=== PATIENT | male | born 1985 | race Caucasian/White ===

== ENCOUNTER → 2018-08-27 | Outpatient (CLI) | payer BC ==
[2018-08-27 11:11] LABS: BASO # 0.1 10*3/uL (0.0-0.1); BASO % 0.6 % (0.0-1.0); EOS # 0.2 10*3/uL (0.0-0.4); EOS % 1.9 % (1.0-4.0); HEMATOCRIT 47.3 % (42.0-52.0); HEMOGLOBIN 16.7 g/dl (14.0-18.0); LYMPH # 2.1 10*3/uL (1.3-4.4); LYMPH % 26.4 % (27.0-41.0); MEAN CORPUSCULAR HGB 29.7 pg (27.0-31.0); MEAN CORPUSCULAR HGB CONC 35.3 g/dl (33.0-37.0); MEAN PLATELET VOLUME 10.2 fl (9.6-12.3); MONO # 0.5 10*3/uL (0.1-1.0); MONO % 6.3 % (3.0-9.0); NEUT # 5.2 10*3/uL (2.3-7.9); NEUT % 64.7 % (47.0-73.0); PLATELET COUNT AUTOMATED 257 10*3/uL (130-400); RED BLOOD COUNT 5.63 10*6/uL (4.50-5.90); RED CELL DISTRI WIDTH 11.7 % (0-14.5)
[2018-08-27 11:36] LABS: ALBUMIN 4.3 gm/dl (3.1-4.5); ALKALINE PHOSPHATASE 103 U/L (45-117); BUN 18 mg/dl (7-24); CHLORIDE 98 mmol/L (98-107); CHOLESTEROL 220 mg/dL (<200); CREATININE 1.03 mg/dL (0.70-1.30); FREE T4 1.18 ng/dl (0.76-1.46); HDL CHOLESTEROL 49 mg/dl (40-60); LDL CHOLESTEROL 150 mg/dL (9-159); POTASSIUM 4.8 mmol/L (3.5-5.1); SGOT/AST 21 IU/L (3-35); SGPT/ALT 44 U/L (12-78); SODIUM 133 mmol/L (136-145); TOTAL PROTEIN 7.5 gm/dL (6.4-8.2); TRIGLYCERIDES 106 mg/dl (<150); VLDL CHOLESTEROL 21 mg/dL (6-40)
== END | disposition home or self-care (01) ==
LOC: LAB 10:28
PROVIDERS: Internal Medicine
DX: E11.9 Type 2 diabetes mellitus without complications (principal)

== ENCOUNTER → 2024-05-29 | Outpatient (CLI) | payer BC ==
[~2024-05-29] MED LIST: LEVEMIR100 UNIT/1 SQ; NOVOLOG FL100 UNIT/1 SQ; PRILOSEC20 M1 PO
[2024-05-29 10:20] LABS: ALKALINE PHOSPHATASE 92 U/L (46-116); BUN 16 mg/dl (9-23); CHLORIDE 104 mmol/L (98-107); POTASSIUM 4.4 mmol/L (3.4-5.1); SGPT/ALT 37 U/L (5-49)
== END | disposition home or self-care (01) ==
LOC: LAB 09:44
PROVIDERS: ATTEND Internal Medicine
DX: E10.65 Type 1 diabetes mellitus with hyperglycemia (principal)

== ENCOUNTER 2024-09-30 17:00 | Inpatient (IN) | payer OTHER ==
[~2024-09-30] VITALS: Ht 165.1 cm; Wt 77.7 kg
[2024-09-30 17:23] VITALS: BP 109/66
[2024-09-30] MEDS ORDERED: SODIUM CHLORIDE 0.9% 1,000 ML IV ONE ×3 (17:30→18:30)
[2024-09-30 17:57] LABS: BASO % 0.3 % (0.0-1.0); HEMATOCRIT 36.5 % (42.0-52.0); MEAN CELL VOLUME 86.3 fl (80.0-94.0); MEAN CORPUSCULAR HGB 28.8 pg (27.0-31.0); MEAN CORPUSCULAR HGB CONC 33.4 g/dl (33.0-37.0); MEAN PLATELET VOLUME 9.6 fl (9.6-12.3); MONO # 0.8 10*3/uL (0.1-1.0); MONO % 11.1 % (3.0-9.0); NEUT # 5.4 10*3/uL (2.3-7.9); NEUT % 77.5 % (47.0-73.0); PLATELET COUNT AUTOMATED 161 10*3/uL (130-400); RED BLOOD COUNT 4.23 10*6/uL (4.50-5.90); RED CELL DISTRI WIDTH 11.9 % (0-14.5)
[2024-09-30 18:11] LABS: BUN 13 mg/dl (9-23); CHLORIDE 98 mmol/L (98-107); POTASSIUM 3.9 mmol/L (3.4-5.1)
[2024-09-30] MEDS ORDERED: ASPIRIN 325 MG TAB PO ONE (18:25)
[2024-09-30] MEDS ORDERED: Enoxaparin Sodium 80 MG/0.8 ML SYR SC ONE (18:25)
[2024-09-30] MEDS ORDERED: Ceftriaxone Sodium 1 GM/10 ML SYR IV ONE (18:30)
[2024-09-30] MEDS ORDERED: AZITHROMYCIN 250 ML IV ONE (18:35)
[2024-09-30] MEDS ORDERED: Metoprolol Tartrate 25 MG TAB PO ONE ×2 (20:35→22:00)
[2024-09-30 20:56] VITALS: BP 108/61
[2024-09-30] MEDS ORDERED: ACETAMINOPHEN 325 MG TAB PO PRN (21:15)
[2024-09-30] MEDS ORDERED: ACETAMINOPHEN 325 MG TAB PO ONE (21:15)
[2024-09-30 21:38] VITALS: BP 117/56
[2024-09-30 22:01] VITALS: BP 117/56
[2024-09-30 22:33] VITALS: BP 109/46
[2024-09-30 23:16] VITALS: BP 107/56
[2024-10-01] VITALS: BP 117/64
[2024-10-01 00:07] VITALS: BP 113/70
[2024-10-01 00:30] VITALS: BP 117/64
[2024-10-01] MEDS ORDERED: INSULIN LI100 UNIT/1 SQ (03:20)
[2024-10-01] MEDS ORDERED: VITAMIN D350 MC2 PO (03:20)
[2024-10-01] MEDS ORDERED: ATORVASTATIN CA40 M1 PO (03:20)
[2024-10-01] MEDS ORDERED: ACETAMINOPHEN 325 MG TAB PO PRN (03:30)
[2024-10-01] MEDS ORDERED: Enoxaparin Sodium 80 MG/0.8 ML SYR SC SCH (06:00)
[2024-10-01 06:48] LABS: BUN 12 mg/dl (9-23); CHLORIDE 104 mmol/L (98-107); POTASSIUM 3.7 mmol/L (3.4-5.1); SGPT/ALT 135 U/L (5-49); TOTAL PROTEIN 5.9 gm/dL (6.0-8.0)
[2024-10-01 07:08] LABS: ALKALINE PHOSPHATASE 241 U/L (46-116)
[2024-10-01 07:22] LABS: BASO % 0.5 % (0.0-1.0); EOS % 0.2 % (1.0-4.0); MEAN CELL VOLUME 85.5 fl (80.0-94.0); MEAN CORPUSCULAR HGB 28.8 pg (27.0-31.0); MEAN CORPUSCULAR HGB CONC 33.6 g/dl (33.0-37.0); MEAN PLATELET VOLUME 10.5 fl (9.6-12.3); MONO # 0.7 10*3/uL (0.1-1.0); NEUT # 4.8 10*3/uL (2.3-7.9); NEUT % 71.6 % (47.0-73.0); PLATELET COUNT AUTOMATED 148 10*3/uL (130-400); RED BLOOD COUNT 3.86 10*6/uL (4.50-5.90); RED CELL DISTRI WIDTH 11.9 % (0-14.5); WHITE BLOOD COUNT 6.6 10*3/uL (4.8-10.8)
[2024-10-01 08:00] VITALS: BP 105/54
[2024-10-01] MEDS ORDERED: ATORVASTATIN CALCIUM 40 MG TABLET PO SCH (10:00)
[2024-10-01] MEDS ORDERED: ASPIRIN ENTERIC COATED 81 MG TAB PO SCH (10:00)
[2024-10-01] MEDS ORDERED: Metoprolol Tartrate 25 MG TAB PO SCH (10:00)
[2024-10-01] MEDS ORDERED: Regadenoson 0.4 MG/5 ML SYR IV ONE (10:48)
[2024-10-01 12:00] VITALS: BP 121/65
[2024-10-01] MEDS ORDERED: LEVOFLOXACIN750 M2 PO (16:07)
[2024-10-01] MEDS ORDERED: CEFUROXIME AXE500 MG PO (16:10)
[2024-10-01] MEDS ORDERED: AZITHROMYCIN 250 ML IV SCH (17:00)
[2024-10-01] MEDS ORDERED: Ceftriaxone Sodium 1 GM in SYRINGE INFUSION 10 ML IV SCH (18:00)
[2024-10-04 17:06] LABS: COXSACKIE A16 IGM Negative titer (Neg:<1:10); COXSACKIE A7 IGM Negative titer (Neg:<1:10); COXSACKIE A9 IGM Negative titer (Neg:<1:10)
[2024-10-05 17:07] LABS: COXSACKIE A16 IGG Negative titer (Neg:<1:100); COXSACKIE A24 IGG Negative titer (Neg:<1:100); COXSACKIE A7 IGG Negative titer (Neg:<1:100); COXSACKIE A9 IGG Negative titer (Neg:<1:100)
== END 2024-10-01 16:32 | disposition home or self-care (01) | DRG 280 ==
LOC: ED 17:00 → 4E 19:20 → EDHOLD 19:20 → 4E 23:42
PROVIDERS: Emergency Medicine; ADMIT Internal Medicine; ATTEND Internal Medicine
PROC: 4A02XM4 Measurement of Cardiac Total Activity, External Approach (ICD-10-PCS; principal; 2024-10-01)
PROC: 3E033HZ Introduction of Radioactive Substance into Peripheral Vein, Percutaneous Approach (ICD-10-PCS; 2024-10-01)
DX: I21.4 Non-ST elevation (NSTEMI) myocardial infarction (principal); J18.9 Pneumonia, unspecified organism; E87.1 Hypo-osmolality and hyponatremia; E11.9 Type 2 diabetes mellitus without complications; K21.9 Gastro-esophageal reflux disease without esophagitis; E78.5 Hyperlipidemia, unspecified; R74.01 Elevation of levels of liver transaminase levels; Z79.899 Other long term (current) drug therapy; Z79.01 Long term (current) use of anticoagulants; Z79.4 Long term (current) use of insulin; Z83.3 Family history of diabetes mellitus; Z82.49 Family history of ischemic heart disease and other diseases of the circulatory system; Z82.5 Family history of asthma and other chronic lower respiratory diseases; Z72.0 Tobacco use

== ENCOUNTER → 2024-10-05 | Outpatient (CLI) | payer OTHER ==
[~2024-10-05] MED LIST changes: +ATORVASTATIN CA40 M1 PO; +CEFUROXIME AXE500 MG PO; +INSULIN LI100 UNIT/1 SQ; +LEVOFLOXACIN750 M2 PO; +VITAMIN D350 MC2 PO
== END | disposition home or self-care (01) ==
LOC: RAD 09:00
PROVIDERS: ATTEND Internal Medicine
DX: J18.9 Pneumonia, unspecified organism (principal); J98.4 Other disorders of lung

== ENCOUNTER → 2025-01-22 | Outpatient (CLI) | payer OTHER | END | disposition home or self-care (01) | LOC: RAD 07:47 | PROVIDERS: ATTEND Internal Medicine | DX: M19.011 Primary osteoarthritis, right shoulder (principal); M25.511 Pain in right shoulder ==